=== PATIENT | male | born 2005 | race Caucasian/White ===

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

== ENCOUNTER 2024-04-30 23:47 | Emergency (ER) | payer MEDICAID, OTHER ==
[2024-05-01] MEDS: Acetaminophen 500 MG Tab PO ONE (00:04)
[2024-05-01] MEDS: Ibuprofen 800 MG Tab PO ONE (00:04)
== END 2024-05-01 01:00 | disposition home or self-care (01) ==
LOC: FB.ED 23:47
DX: I10 Essential (primary) hypertension (principal); J06.9 Acute upper respiratory infection, unspecified; R51.9 Headache, unspecified
CPT/HCPCS: 87428; 99284; A9270